=== PATIENT | female | born 1960 | race Hispanic/Latino ===

== ENCOUNTER 2021-11-20 21:30 | Emergency (ER) | payer OTHER ==
[2021-11-20 23:20] VITALS: BP 143/79
[2021-11-21] MEDS ORDERED: oxyCODONE /ACETAMINOPHEN 5-325MG TAB PO ONE (00:13)
[2021-11-21] MEDS ORDERED: IBUPROFEN 600 MG TAB PO ONE (00:13)
[2021-11-21] MEDS ORDERED: LIDOCAINE (1%) 10 MG/1 ML VIAL 20 ML MDV INFILTRATI ONE (00:13)
[2021-11-21] MEDS ORDERED: ONDANSETRON 4 MG ODT TAB PO ONE ×2 (00:13→03:25)
--- NOTE | 2021-11-21 00:54 | XRay Report ---
RIGHT KNEE 3 VIEWS INDICATION / CLINICAL INFORMATION: Right knee pain after fall. COMPARISON: None available. FINDINGS: BONES and JOINT(S): No acute fracture or subluxation. The bones are demineralized with severe tricomp artmental osteoarthritis. SOFT TISSUES: No significant abnormality. ADDITIONAL FINDINGS: None. IMPRESSION: 1. No acute findings. 2. Severe osteoarthritis. Signer Name: Henrry Jaimes MD Signed: 11/21/2021 12:50 AM Workstation Name: [id number]
--- NOTE | 2021-11-21 02:39 | Emergency Department Report ---
ED Fall HPI - General Chief Complaint: Wound/Laceration Stated Complaint: STITCHES Source: patient Mode of arrival: Ambulatory - History of Present Illness Initial Comments: Patient is a 61-year-old female with a history of morbid obesity and chronic osteoarthritis who presents to the ED with complaint of acute onset persistent right knee pain after she slipped and fell at home down the stairs, landed on the right knee with multiple bleeding laceration wounds 6 hours ago. Patient states that she was walking down the stairs when she missed a step and fell down landing on the right knee. Patient states that she is up-to-date with all her tetanus vaccination. Patient denies head or neck injuries, back pain, chest pain, shortness of breath, dizziness, syncope, seizures, vision loss, numbness and tingling or weakness of lower extremities bilaterally. MD Complaint: fall, other (right knee pain, bleeding lacerations) -: hour(s) (4) Fall From: standing, down stairs (#) (2) When Fall Occurred: 4-6 hours [employer] Fall Witnessed: yes, by family Place Fall Occurred: home Loss of Consciousness: none Prolonged Down Time?: no Symptoms Prior to Fall: none Location: other (right knee) Location - Extremities: Right: Knee (pain, bleeding laceration wounds) Severity: severe Severity scale (0 -10): 8 Quality: sharp, aching Context: tripped/slipped Associated Symptoms: denies. denies: headache, neck pain, numbness, chest paint, shortness of breath, abdominal pain, hematuria, unable to walk, lightheaded, vertigo, confusion - Related Data Previous Rx's Medication Instructions Recorded Last Taken Type Ibuprofen [Motrin] 800 mg PO Q8HR PRN #30 tablet 11/21/21 Unknown Rx cephALEXin [Keflex] 500 mg PO Q6HR #40 capsule 11/21/21 Unknown Rx traMADoL [Ultram] 50 mg PO Q6HR PRN #12 tablet 11/21/21 Unknown Rx Allergies Allergy/AdvReac Type Severity Reaction Status Date / Time bee venom protein (honey bee) Allergy Unknown Verified 11/20/21 22:12 codeine Allergy Unknown Verified 11/20/21 22:12 naphazoline [From Naphcon] Allergy Unknown Verified 11/20/21 22:12 ED Review of Systems ROS: Stated complaint: STITCHES Other details as noted in HPI Constitutional: denies: chills, fever Eyes: denies: eye pain, eye discharge, vision change ENT: denies: ear pain, throat pain Respiratory: denies: cough, shortness of breath, wheezing Cardiovascular: denies: chest pain, palpitations Endocrine: no symptoms reported Gastrointestinal: denies: abdominal pain, nausea, diarrhea Genitourinary: denies: urgency, dysuria, discharge Musculoskeletal: arthralgia (right knee pain due to bleeding lacerations), myalgia. denies: back pain, joint swelling Skin: other (bleeding right knee laceration wounds). denies: rash, lesions Neurological: denies: headache, weakness, paresthesias Psychiatric: denies: anxiety, depression Hematological/Lymphatic: denies: easy bleeding, easy bruising ED Past Medical Hx - Past Medical History Previous Medical History?: Yes Hx Arthritis: Yes - Medications Home Medications: Home Medications Medication Instructions Recorded Confirmed Last Taken Type Ibuprofen [Motrin] 800 mg PO Q8HR PRN #30 tablet 11/21/21 Unknown Rx cephALEXin [Keflex] 500 mg PO Q6HR #40 capsule 11/21/21 Unknown Rx traMADoL [Ultram] 50 mg PO Q6HR PRN #12 tablet 11/21/21 Unknown Rx ED Physical Exam - General Limitations: No Limitations General appearance: alert, in no apparent distress - Head Head exam: Present: atraumatic, normocephalic, normal inspection - Eye Eye exam: Present: normal appearance, PERRL, EOMI Pupils: Present: normal accommodation - ENT ENT exam: Present: normal exam, normal orophraynx, mucous membranes moist, TM's normal bilaterally, normal external ear exam - Neck Neck exam: Present: normal inspection, full ROM. Absent: tenderness - Respiratory Respiratory exam: Present: normal lung sounds bilaterally. Absent: respiratory distress, wheezes, rales, rhonchi, chest wall tenderness, accessory muscle use, decreased breath sounds, prolonged expiratory - Cardiovascular Cardiovascular Exam: Present: regular rate, normal rhythm, normal heart sounds. Absent: systolic murmur, diastolic murmur, rubs, gallop - GI/Abdominal GI/Abdominal exam: Present: soft, normal bowel sounds. Absent: tenderness, guarding, rebound, hyperactive bowel sounds, hypoactive bowel sounds, organomegaly, mass, bruit - Extremities Exam Extremities exam: Present: normal inspection, full ROM, tenderness (Palpable right knee tenderness with limited range of motion due to pain.), normal capillary refill, other (Bleeding laceration wounds on anterior right knee measu ring 5 cm and 4 cm respectively). Absent: pedal edema, joint swelling - Back Exam Back exam: Present: normal inspection, full ROM. Absent: CVA tenderness (L), muscle spasm, paraspinal tenderness, vertebral tenderness - Neurological Exam Neurological exam: Present: alert, oriented X3, CN II-XII intact, normal gait, reflexes normal - Psychiatric Psychiatric exam: Present: normal affect, normal mood - Skin Skin exam: Present: warm, dry, normal color, other (Bleeding anterior right knee 5 cm and 4 cm laceration wounds). Absent: intact, rash ED Course Vital Signs 11/20/21 11/20/21 21:31 23:19 Temperature 98.1 F 98.4 F Pulse Rate 81 76 Respiratory 18 16 Rate Blood Pressure 156/85 143/79 [Right] O2 Sat by Pulse 97 98 Oximetry - Laceration /Wound Repair Right Anterior Knee Wound Location: lower extremity (Anterior right knee) Wound Length (cm): 5 Wound's Depth, Shape: superficial, linear Wound Explored: contaminated Irrigated w/ Saline (ccs): 300 Betadine Prep?: Yes Anesthesia: 1% Lidocaine Volume Anesthetic (ccs): 6 Wound Debrided: extensive Wound Repaired With: sutures Suture Size/Type: 3:0, proline Number of Sutures: 10 Layer Closure?: No Sterile Dressing Applied?: No Progress: The wound was cleaned extensively with normal saline and Betadine solutions. Lidocaine 1% solution was used as a local anesthetic. When anesthesia was fully achieved, the wound was sutured per protocol the patient tolerated the procedure well. The wounds were then dressed appropriately the patient was discharged home on medications for pain as well as prophylactic antibiotics. Patient was advised to return to the ED immediately if symptoms get worse. Patient was otherwise advised to return to the ED or to her primary care physician in 12 to 14 days for suture removal. Right Knee Wound Location: lower extremity (right knee ) Wound Length (cm): 4 Wound's Depth, Shape: superficial, linear Wound Explored: contaminated Irrigated w/ Saline (ccs): 300 Betadine Prep?: Yes Anesthesia: 1% Lidocaine Volume Anesthetic (ccs): 5 Wound Debrided: extensive Wound Repaired With: sutures Suture Size/Type: 3:0, proline Number of Sutures: 9 Layer Closure?: No Sterile Dressing Applied?: Yes Progress: The wound was cleaned extensively with normal saline and Betadine solutions. Lidocaine 1% solution was used as a local anesthetic. When anesthesia was fully achieved, the wound was sutured per protocol the patient tolerated the procedure well. The wounds were then dressed appropriately the patient was discharged home on medications for pain as well as prophylactic antibiotics. Patient was advised to return to the ED immediately if symptoms get worse. Patient was otherwise advised to return to the ED or to her primary care physician in 12 to 14 days for suture removal. ED Medical Decision Making - Radiology Data Radiology results: report reviewed, image reviewed [facility] [address] [place] [address] XRay Report Signed Patient: POLO MAGALLANES MR#: [id number] : 1960 Acct:[id number] Age/Sex: 61 / F ADM Date: 11/20/21 Loc: ED Attending Dr: Ordering Physician: SULY SANDERS Date of Service: 11/21/21 Procedure(s): XR knee 3V RT Accession Number(s): [id number] cc: SULY SANDERS Fluoro Time In Minutes: RIGHT KNEE 3 VIEWS INDICATION / CLINICAL INFORMATION: Right knee pain after fall. COMPARISON: None available. FINDINGS: BONES and JOINT(S): No acute fracture or subluxation. The bones are demineralized with severe tricompartmental osteoarthritis. SOFT TISSUES: No significant abnormality. ADDITIONAL FINDINGS: None. IMPRESSION: 1. No acute findings. 2. Severe osteoarthritis. Signer Name: Henrry Jaimes MD Signed: 11/21/2021 12:50 AM Workstation Name: [id number] Transcribed By: FORREST Dictated By: Henrry Jaimes MD Electronically Authenticated By: Henrry Jaimes MD Signed Date/Time: 11/21/2149 DD/ TD/TT: - Medical Decision Making This is a 61-year-old female with a history of morbid obesity and chronic osteoarthritis who presents to the ED with complaint of acute onset persistent right knee pain after she slipped and fell at home down the stairs, landed on the right knee with multiple bleeding laceration wounds 6 hours ago. Patient states that she was walking down the stairs when she missed a step and fell down landing on the right knee. Patient states that she is up-to-date with all her tetanus vaccination. In the ED, patient is alert and oriented x3 and is not in any distress. Patient however appears to be in pain. Right knee x-ray showed no acute fracture or subluxation. The bones are demineralized with severe tricompartmental osteoarthritis.the anterior right knee bleeding laceration wounds were cleaned extensively with normal saline and Betadine solution and sutured per protocol. The wounds were then dressed appropriately. Patient tolerated the procedure well. Patient was discharged home on pain medications and prophylactic antibiotics and advised return to the ED immediately if symptoms get worse. Patient was otherwise advised to return to the ED or to her primary care physician in 12 to 14 days for suture removal. - Differential Diagnosis Knee fracture; knee sprain; knee muscle strain; knee lacerations; Critical care attestation.: If time is entered above; I have spent that time in minutes in the direct care of this critically ill patient, excluding procedure time. ED Disposition Clinical Impression: Contusion of right knee and lower leg Qualifiers: Encounter type: initial encounter Qualified Code(s): S80.01XA - Contusion of right knee, initial encounter Laceration of right knee Qualifiers: Encounter type: initial encounter Qualified Code(s): S81.011A - Laceration without foreign body, right knee, initial encounter Puncture wound of right knee Qualifiers: Encounter type: initial encounter Qualified Code(s): S81.031A - Puncture wound without foreign body, right knee, initial encounter Sprain of right knee Qualifiers: Encounter type: initial encounter Involved ligament of knee: unspecified ligament Qualified Code(s): S83.91XA - Sprain of unspecified site of right knee, initial encounter Osteoarthritis of right knee Qualifiers: Osteoarthritis type: primary Qualified Code(s): M17.11 - Unilateral primary osteoarthritis, right knee Disposition: 01 HOME / SELF CARE / HOMELESS Is pt being admited?: No Does the pt Need Aspirin: No Condition: Stable Instructions: Puncture Wound, [id number], Contusion, [id number], Laceration Care, Adult, [id number], Sutures, [place], or Adhesive Wound Closure, [id number], Sutured Wound Care, [id number] Additional Instructions: Right knee x-ray showed significant osteoarthritis of the right knee joint. There is however no acute fractures or subluxations. Therefore take medications with food, drink plenty of fluids and follow-up with your primary care physician in 7 to 10 days for reevaluation. Return to the ED immediately if symptoms get worse. Otherwise return to the ED with your primary care physician in 12 to 14 days for suture removal. Prescriptions: cephALEXin [Keflex] 500 mg PO Q6HR #40 capsule Ibuprofen [Motrin] 800 mg PO Q8HR PRN #30 tablet PRN Reason: Pain , Severe (7-10) traMADoL [Ultram] 50 mg PO Q6HR PRN #12 tablet PRN Reason: Pain Referrals: [facility] [Provider Group] - 7-10 days Forms: Work/School Release Form(ED) Time of Disposition: 02:37 Print Language: [place] ISLAND[place]
[2021-11-21] MEDS ORDERED: FAMOTIDINE 20 MG TAB PO ONE (03:28)
== END 2021-11-21 03:40 | disposition home or self-care (01) ==
LOC: ED 21:30
DX: S81.011A Laceration without foreign body, right knee, initial encounter (principal); M17.11 Unilateral primary osteoarthritis, right knee; Z88.5 Allergy status to narcotic agent; Z88.8 Allergy status to other drugs, medicaments and biological substances; Z91.030 Bee allergy status; Z79.899 Other long term (current) drug therapy; W01.0XXA Fall on same level from slipping, tripping and stumbling without subsequent striking against object, initial encounter; Y93.89 Activity, other specified; Y92.89 Other specified places as the place of occurrence of the external cause; Y99.8 Other external cause status
CPT/HCPCS: 99283; J3490; Q0162